=== PATIENT | male | born 1940 | race Caucasian/White ===

== ENCOUNTER 2019-06-11 02:15 | Emergency (ER) | payer OTHER ==
[~2019-06-11] VITALS: Ht 167.6 cm; Wt 72.7 kg
[~2019-06-11 02:15] MED LIST: ULTRAM 50MG TAB50 MG PO; ZESTRIL 20MG TA20 MG PO; ZOCOR 10MG10 MG PO; ZYLOPRIM 100MG100 MG PO
[2019-06-11 02:32] VITALS: TEMP 98.1
[2019-06-11] MEDS ORDERED: NORCO 325 MG-51 TAB PO (04:08)
[2019-06-11] MEDS ORDERED: LYRICA 75MG CAP75 MG PO (04:08)
[2019-06-11 04:21] VITALS: BP 163/83; PULSE 69
== END 2019-06-11 04:21 | disposition home or self-care (01) ==
LOC: COL.ER 02:15
DX: M79.604 Pain in right leg (principal); E78.5 Hyperlipidemia, unspecified; I10 Essential (primary) hypertension

== ENCOUNTER 2021-05-24 08:53 | Inpatient (IN) | payer OTHER ==
[~2021-05-24] VITALS: Ht 170.2 cm; Wt 77.0 kg
[2021-05-24] VITALS (251 sets, daily range): BP systolic 130–170; BP diastolic 60–104; PULSE 70–78; TEMP 98.6–99; O2SAT 91–100
[~2021-05-24 08:53] MED LIST changes: +LYRICA 75MG CAP75 MG PO; +NORCO 325 MG-51 TAB PO
[2021-05-24 09:18] LABS: BASO % 0.5 % (0.0-2.0); EOS % 0.6 % (0-4.0); GRAN # 4.9 (1.4-6.5); GRAN % 77.4 % (42.2-75.2); HEMATOCRIT 36.8 % (42.0-52.0); HEMOGLOBIN 12.7 g/dl (13.5-18.0); LYMPH # 0.9 (1.2-3.4); LYMPH % 13.9 % (20.0-51.0); MEAN CELL VOLUME 97 fl (80.0-100.0); MEAN CORPUSCULAR HEMOGLOBIN 33 pg (27.0-31.0); MEAN CORPUSCULAR HGB CONC 35 g/dl (33.0-37.0); MEAN PLATELET VOLUME 10.7 fl (7.4-10.4); MONO # 0.5 (0.1-0.6); MONO % 7.1 % (1.7-9.3); PLATELET COUNT 196 K/mm3 (130-400); RED BLOOD COUNT 3.81 M/mm3 (4.20-5.60); REDCELL DISTRIBUTION WIDTH-CV 13.3 % (11.5-14.5)
[2021-05-24 09:19] LABS: INR 1.2 (0.8-3.0); PROTHROMBIN TIME 13.6 SECONDS (9.7-12.8)
[2021-05-24 09:21] LABS: PARTIAL THROMBOPLASTIN TIME 35.4 SECONDS (26.0-37.0)
[2021-05-24 09:22] LABS: ALBUMIN 4.1 gm/dL (3.5-5.0); BILIRUBIN,TOTAL 0.6 mg/dL (0.0-1.0); CALCIUM 9.2 mg/dL (8.4-10.2); CREATININE, serum 1.38 (0.66-1.25); POTASSIUM 4.3 mmol/L (3.4-5.0); TOTAL PROTEIN 8.7 gm/dL (6.4-8.2)
[2021-05-24 10:04] LABS: TROPONIN-I 1.23 ng/mL (0.000-0.035)
[2021-05-24] MEDS ORDERED: PLAVIX 75MG TAB75 MG PO (12:47)
[2021-05-24] MEDS ORDERED: MAGNESIUM L-THREONAT PO (12:51)
[2021-05-24] MEDS ORDERED: CENTRUM1 TA1 PO (12:52)
--- NOTE | 2021-05-24 18:00 | NUR ---
Arrived to the unit from the ER. Patient alert but confused. YEAST TENDER states that per the this is patient's baseline. Patient has difficulty finding his words or even understanding basic quesions such as "what is your name" or following simple commands. Patient responds best to very simple "yes" or "no" quesions. Denies any chest or arm pain and also denies any shortness of breath. Attached to all monitors and assessment complete; call light left within reach; will continue to monitor.
--- NOTE | 2021-05-24 19:20 | NUR ---
Bedside report given to JULIUS Ybarra. Patient care transfered.
[2021-05-25] VITALS (916 sets, daily range): BP systolic 95–154; BP diastolic 54–81; PULSE 66–85; TEMP 98–98.7; O2SAT 80–100
[2021-05-25 05:42] LABS: BASO % 0.6 % (0.0-2.0); EOS # 0.1 (0.0-0.7); EOS % 1.1 % (0-4.0); GRAN # 3.2 (1.4-6.5); HEMOGLOBIN 11.4 g/dl (13.5-18.0); LYMPH % 21.8 % (20.0-51.0); MEAN CELL VOLUME 95 fl (80.0-100.0); MEAN CORPUSCULAR HEMOGLOBIN 33 pg (27.0-31.0); MEAN CORPUSCULAR HGB CONC 35 g/dl (33.0-37.0); MEAN PLATELET VOLUME 10.8 fl (7.4-10.4); MONO # 0.4 (0.1-0.6); MONO % 9.1 % (1.7-9.3); PLATELET COUNT 159 K/mm3 (130-400); RED BLOOD COUNT 3.47 M/mm3 (4.20-5.60); REDCELL DISTRIBUTION WIDTH-CV 13.6 % (11.5-14.5)
[2021-05-25 05:43] LABS: HEMATOCRIT 32.8 % (42.0-52.0)
[2021-05-25 05:55] LABS: CALCIUM 9.1 mg/dL (8.4-10.2); CREATININE, serum 1.38 (0.66-1.25); MAGNESIUM 1.9 mg/dL (1.6-2.3); POTASSIUM 4.2 mmol/L (3.4-5.0)
[2021-05-25 06:22] LABS: TROPONIN-I 1.13 ng/mL (0.000-0.035)
--- NOTE | 2021-05-25 08:00 | NUR ---
MR. YEAGER IS ALERT BUT HAS DIFFUCULTY FINDING THE CORRECT WORDS. HE IS ABLE TO FOLLOW COMMANDS BUT HAS DIFFICULTY ANSWERING WHAT HIS NAME AND IS. HE STATES THAT " HE WANTS TO GO HOME" AND APPEARS TO GET MORE FRUSTERATED WITH TRYING TO ANSWER QUESTIONS SUCH IF HE HAS PAIN AND WHERE.
--- NOTE | 2021-05-25 15:28 | NUR ---
Sw met with the pt ( present) who stated there preference to return home once medically stable. The , Elizabeth ph#[phone] answered all the questions for me. the pt lives at home. The pt is independent on all ADLs and does not use any DME. The pt Pcp is MIGUEL A Aranda and gets [facility]. The pt and have [facility] and daughter has the paperwork. No other needs stated at this time. Sw to await further recommendations and follow up as needed. D/c: Home with .
--- NOTE | 2021-05-25 22:58 | NUR ---
HEP GTT INFUSING AT 12ML/HR FROM PREVIOUS 10.5ML/HR. NEXT HEPXA LAB DRAW AT 0430 MORNING. PT VERBALIZES UNDERSTANDING. CALL LIGHT WITHIN REACH.
[2021-05-26] VITALS (12 sets, daily range): BP systolic 105–154; BP diastolic 57–90; PULSE 58–76; TEMP 98.3–99.1
--- NOTE | 2021-05-26 05:56 | NUR ---
PT REMAINED NPO THROUGH OUT NIGHT, HEP GTT CONTINUES TO INFUSE AT 12ML/HR, PT MET GOAL AT 0430 AND THIS NURSE MADE NO CHANGES TO RATE, NEXT HEPXA LEVEL DRAW AT 1030 05/26/21. PT DENIES PAIN,N,V,D. PT EXPRESSES NO ADDITONAL NEEDS AT THIS TIME. CALL LIGHT WITHIN REACH.
--- NOTE | 2021-05-26 07:00 | NUR ---
Report received from JULIUS Dyson. PT in bed resting ,jessica shay, will continue to monittor.
--- NOTE | 2021-05-26 08:50 | NUR ---
Assessment charted. Pt unable to answer any orientation questions,per at bedside this is an ongoing issue for the pt, she states he has been having these problems for years and they jsut keep getting worse. 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 Denies pain. Hep gtt at 12ml/hr to R A/C. INT to LA/C. Will continue to monitor.
--- NOTE | 2021-05-26 08:51 | NUR ---
Called label operator nurse Pedro and he states cath procedure for pt will be approximately 1pm, pt very upset that it will be this late. Pt appears tremulous and per this is his normal.
--- NOTE | 2021-05-26 10:57 | NUR ---
SEE MERGE DOCUMENTATION FOR MEDICATION ADMINISTRATION TIMES AND INTRA/POST PROCEDURE SEDATION ASSESSMENTS.
--- NOTE | 2021-05-26 11:06 | NUR ---
First visit from the tmh teacher. No needs right now.
--- NOTE | 2021-05-26 12:35 | NUR ---
Pt returned to floor at this time via cart with tanb[employer] laborer staff. here. Will continue to monitor.
--- NOTE | 2021-05-26 14:57 | NUR ---
Upon entry into the patients room for second round of deflating the baloon. PT had removed remainder of TR band and arm board. Arm was up in air waving around, immediately redirected pt to relax arm, checked for pulse and no hematoma present. [employer] labor supervisor and Smairat notified. Discussed pt NEEDS TO KEEP THIS IN PLACE. Will conitnue to monitor.
--- NOTE | 2021-05-26 17:16 | NUR ---
Pt has been agreeable and remained without the removing arm band or arm board for remainder of shift. Discussed with that we will leave bed alarm on for safety. Will continue to monitor and give bedside shift report to nightshift nruse who will resume care.
--- NOTE | 2021-05-27 00:22 | NUR ---
Patient resting in bed upon shift start. Right wrist hearth cath site C/D/I. Skin soft and no hematoma noted. Pulses palpable to all the extremities. Right wrist arm band and arm board in place. Patient denies chest pain, SOB, or N/V. Call light within reach. Will continue to monitor.
[2021-05-27 00:34] VITALS: BP 158/74; PULSE 70; TEMP 98.7
[2021-05-27 03:55] VITALS: BP 137/57; PULSE 69; TEMP 98.3
--- NOTE | 2021-05-27 07:20 | NUR ---
Received report from JULIUS Cooper. Patient awake/alert, walking in room. Oriented to current situation, but has some jumbled speech. Pt denies any pain. Services offered; nothing further needed at this time.
[2021-05-27 08:03] VITALS: BP 140/59; PULSE 65; TEMP 97.9
[2021-05-27] MEDS ORDERED: ASPIRIN E.C. 8181 MG PO (08:59)
[2021-05-27] MEDS ORDERED: NITROSTAT0.4 MG/TAB SL (08:59)
[2021-05-27] MEDS ORDERED: LOPRESSOR 225 MG/TAB PO (09:00)
[2021-05-27] MEDS ORDERED: LASIX 40MG TABL40 MG PO (09:01)
[2021-05-27] MEDS ORDERED: PRINIVIL5 MG PO (09:01)
[2021-05-27] MEDS ORDERED: LIPITOR 80MG80 MG PO (09:01)
[2021-05-27] MEDS ORDERED: OMNICEF 300MG300 MG PO (09:07)
[2021-05-27] MEDS ORDERED: MELATONIN5 M1 SL (09:18)
--- NOTE | 2021-05-27 11:25 | NUR ---
Reviewed discharge instructions with patient and . Educated on stent placement and s/s of infection and preventative measures. Questions invited and answered. Pt and denied any further questions at this time.
== END 2021-05-27 11:30 | disposition home or self-care (01) | DRG 246 ==
LOC: COL.ER 08:53 → ICU 14:08 → MEDICAL 14:08 → ICU 18:09 → MEDICAL 05-25 19:30
PROVIDERS: Family Medicine; ADMIT Internal Medicine
PROC: 027236Z Dilation of Coronary Artery, Three Arteries with Three Drug-eluting Intraluminal Devices, Percutaneous Approach (ICD-10-PCS; principal; 2021-05-26)
PROC: 4A023N7 Measurement of Cardiac Sampling and Pressure, Left Heart, Percutaneous Approach (ICD-10-PCS; 2021-05-26)
PROC: B2111ZZ Fluoroscopy of Multiple Coronary Arteries using Low Osmolar Contrast (ICD-10-PCS; 2021-05-26)
DX: I21.4 Non-ST elevation (NSTEMI) myocardial infarction (principal); J18.9 Pneumonia, unspecified organism; I13.0 Hypertensive heart and chronic kidney disease with heart failure and stage 1 through stage 4 chronic kidney disease, or unspecified chronic kidney disease; I50.40 Unspecified combined systolic (congestive) and diastolic (congestive) heart failure; E78.5 Hyperlipidemia, unspecified; M10.9 Gout, unspecified; F41.9 Anxiety disorder, unspecified; I25.10 Atherosclerotic heart disease of native coronary artery without angina pectoris; N18.30 Chronic kidney disease, stage 3 unspecified; Z86.73 Personal history of transient ischemic attack (TIA), and cerebral infarction without residual deficits; I27.20 Pulmonary hypertension, unspecified; Z85.46 Personal history of malignant neoplasm of prostate; Z87.891 Personal history of nicotine dependence; Z79.02 Long term (current) use of antithrombotics/antiplatelets; Z20.822 Contact with and (suspected) exposure to COVID-19
CPT/HCPCS: 99223-AI; 99232-AI; 99233-AI; 99239; C1725; C1769; C1874; C1887; C9600; C9601; J0696; J1644; J2250; J3010; Q9967

== ENCOUNTER 2021-08-08 12:57 | Outpatient (RCR) | payer OTHER ==
[~2021-08-08 12:57] MED LIST changes: +ASPIRIN E.C. 8181 MG PO; +CENTRUM1 TA1 PO; +LASIX 40MG TABL40 MG PO; +LIPITOR 80MG80 MG PO; +LOPRESSOR 225 MG/TAB PO; +MAGNESIUM L-THREONAT PO; +MELATONIN5 M1 SL; +NITROSTAT0.4 MG/TAB SL; +OMNICEF 300MG300 MG PO; +PLAVIX 75MG TAB75 MG PO; +PRINIVIL5 MG PO
[2021-08-21] MEDS ORDERED: PREDNISONE20 MG PO (02:00)
[2021-08-21] MEDS ORDERED: NORCO 325 MG-51 TAB PO (02:00)
[2021-08-27] MEDS ORDERED: FLEXERIL 1010 MG/TAB PO (15:40)
== END 2021-10-03 | disposition home or self-care (01) ==
LOC: COL.CR
DX: Z48.812 Encounter for surgical aftercare following surgery on the circulatory system (principal); Z95.5 Presence of coronary angioplasty implant and graft; I25.2 Old myocardial infarction

== ENCOUNTER 2021-08-21 00:21 | Emergency (ER) | payer OTHER ==
[~2021-08-21] VITALS: Ht 170.2 cm; Wt 59.5 kg
[2021-08-21 00:28] VITALS: BP 135/62; PULSE 60; TEMP 98.2
[2021-08-21 00:49] LABS: BASO % 0.7 % (0.0-2.0); EOS # 0.1 K/mm3 (0.0-0.7); EOS % 1.1 % (0-4.0); GRAN # 2.8 K/mm3 (1.4-6.5); GRAN % 65.2 % (42.2-75.2); HEMATOCRIT 28.7 % (42.0-52.0); HEMOGLOBIN 9.6 g/dl (13.5-18.0); LYMPH % 23.9 % (20.0-51.0); MEAN CELL VOLUME 98 fl (80.0-100.0); MEAN CORPUSCULAR HEMOGLOBIN 33 pg (27.0-31.0); MEAN CORPUSCULAR HGB CONC 33 g/dl (33.0-37.0); MEAN PLATELET VOLUME 11.2 fl (7.4-10.4); MONO # 0.4 K/mm3 (0.1-0.6); MONO % 8.9 % (1.7-9.3); PLATELET COUNT 123 K/mm3 (130-400); RED BLOOD COUNT 2.94 M/mm3 (4.20-5.60); REDCELL DISTRIBUTION WIDTH-CV 13.8 % (11.5-14.5)
[2021-08-21 01:09] LABS: ERYTHROCYTE SEDIMENTATION RATE 55 mm/hr (0-30)
[2021-08-21 01:10] LABS: BILIRUBIN,TOTAL 0.6 mg/dL (0.2-1.2); C-REACTIVE PROTEIN 0.81 mg/dL (0.00-0.50); CALCIUM 9.3 mg/dL (8.4-10.2); CREATININE, serum 2.29 mg/dL (0.72-1.25); POTASSIUM 4.3 mmol/L (3.5-4.5); TOTAL PROTEIN 8.2 gm/dL (6.2-8.1); URIC ACID 13.1 mg/dL (3.5-7.2)
[2021-08-21] MEDS ORDERED: NORCO 325 MG-51 TAB PO (02:00)
[2021-08-21] MEDS ORDERED: PREDNISONE20 MG PO (02:00)
== END 2021-08-21 02:42 | disposition home or self-care (01) ==
LOC: COL.ER 00:21
PROVIDERS: Emergency Medicine
DX: M25.532 Pain in left wrist (principal); M10.9 Gout, unspecified; I12.9 Hypertensive chronic kidney disease with stage 1 through stage 4 chronic kidney disease, or unspecified chronic kidney disease; N18.9 Chronic kidney disease, unspecified; I25.10 Atherosclerotic heart disease of native coronary artery without angina pectoris; F41.9 Anxiety disorder, unspecified; Z79.82 Long term (current) use of aspirin; Z79.899 Other long term (current) drug therapy
CPT/HCPCS: J1885; J3010; J7030; J7512

== ENCOUNTER 2021-08-27 11:30 | Emergency (ER) | payer OTHER ==
[~2021-08-27] VITALS: Ht 170.2 cm; Wt 59.5 kg
[~2021-08-27 11:30] MED LIST changes: +PREDNISONE20 MG PO
[2021-08-27 11:56] VITALS: TEMP 97.9
[2021-08-27 13:04] LABS: COLLECTION METHOD CLEAN CATCH
[2021-08-27 13:11] LABS: PH 5 (5-8); SQUAMOUS EPITHELIAL 0-2 /hpf (0-10); URINE APPEARANCE Clear (CLEAR/HAZY); URINE BACTERIA None Seen (NONE SEEN); URINE BILIRUBIN Negative (NEGATIVE); URINE BLOOD Negative (NEGATIVE); URINE COLOR Straw (YELLOW); URINE GLUCOSE Negative (NEGATIVE); URINE KETONE Negative (NEGATIVE); URINE LEUKOCYTE ESTERASE Negative (NEGATIVE); URINE NITRATE Negative (NEGATIVE); URINE PROTEIN(semi-quant) Negative (NEGATIVE); URINE RBC None Seen /hpf (0-2); URINE UROBILINOGEN Negative (NEGATIVE)
[2021-08-27 13:45] LABS: HEMOGLOBIN 10.5 g/dl (13.5-18.0); MEAN CELL VOLUME 100 fl (80.0-100.0); MEAN CORPUSCULAR HEMOGLOBIN 34 pg (27.0-31.0); MEAN CORPUSCULAR HGB CONC 33 g/dl (33.0-37.0); MEAN PLATELET VOLUME 11.5 fl (7.4-10.4); PLATELET COUNT 143 K/mm3 (130-400); RED BLOOD COUNT 3.13 M/mm3 (4.20-5.60); REDCELL DISTRIBUTION WIDTH-CV 14.7 % (11.5-14.5)
[2021-08-27 13:57] LABS: ALBUMIN 3.5 gm/dL (3.4-4.8); BILIRUBIN,TOTAL 0.8 mg/dL (0.2-1.2); C-REACTIVE PROTEIN 0.31 mg/dL (0.00-0.50); CALCIUM 9.2 mg/dL (8.4-10.2); CREATININE, serum 1.75 mg/dL (0.72-1.25)
[2021-08-27 13:58] LABS: HEMATOCRIT 31.4 % (42.0-52.0)
[2021-08-27 14:28] LABS: BAND 2 % (0-10); EOSINOPHIL 1 % (0-4); LYMPHOCYTE 11 % (20.0-51.0); METAMYELOCYTE 1 % (0-0); NEUTROPHILS 81 % (42.0-75.2)
[2021-08-27 14:29] LABS: OVALOCYTES 1+; PLATELET ESTIMATE NORMAL (NORMAL)
[2021-08-27] MEDS ORDERED: FLEXERIL 1010 MG/TAB PO (15:40)
[2021-08-27 15:55] VITALS: BP 109/68; PULSE 58
== END 2021-08-27 15:55 | disposition home or self-care (01) ==
LOC: COL.ER 11:30
PROVIDERS: Nurse Practitioner
DX: I12.9 Hypertensive chronic kidney disease with stage 1 through stage 4 chronic kidney disease, or unspecified chronic kidney disease (principal); N18.9 Chronic kidney disease, unspecified; I25.10 Atherosclerotic heart disease of native coronary artery without angina pectoris; E88.89 Other specified metabolic disorders; Z98.890 Other specified postprocedural states; Z79.82 Long term (current) use of aspirin; Z79.899 Other long term (current) drug therapy